=== PATIENT | male | born 1950 | race Caucasian/White ===

== ENCOUNTER 2025-03-20 08:20 | Outpatient (AMB) | payer MEDICARE, SELFPAY ==
--- NOTE | 2025-03-20 08:21 | A.OFFVIS_ITS ---
Vital Signs 03/20/25 08:24 Height 5 ft 9 in Weight 184 lb 2 oz BMI 27.2 BP 158/82 H Blood Pressure Location Rt brachial Position Sitting Pulse 64 Pulse Source Pulse Oximeter Pulse Oximetry (%) 96 Oxygen Delivery Method Room Air Intake Visit Reasons: ENP - Tremors of Nervous System Intake Note: Tremor of central nervous system Manager Subway Required: No Accompanied by: Spouse Allergies No Known Allergies Allergy (Verified 03/20/25 08:22) Medication List - Last Reconciled 03/20/25 by Kathy Munoz MD aspirin 81 mg PO DAILY atorvastatin 80 mg PO BEDTIME lisinopril 40 mg PO DAILY metformin ER 1,000 mg PO BEDTIME metoprolol succinate ER 25 mg PO BEDTIME multivitamin 1 tab PO DAILY HPI Comments Details: 74y/o Right handed male comes for evaluation of tremors in his hands.He started noticing daina hand tremors about 2 year ago. It is more when he is lifting or holding something. 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 He also has some recall issues. No voice tremors. He has some gait issues , slower and takes longer to climb stairs. He denies any change in voice or drooling No family h/o tremors he has fallen out of bed twice in the past year.He has some sleep talking.He denies vivid dreams. He snores. He take snaps and is very fatigued during daytime. 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 HTN (hypertension) Diabetes mellitus type 2 with neurological manifestations Onychomycosis Álvarez's palsy Nephrolithiasis Carotid stenosis DM (diabetes mellitus), type 2 with peripheral vascular complications Overweight (BMI 25.0-29.9) CAD (coronary artery disease) Tubular adenoma Surgical History History of esophagogastroduodenoscopy (EGD) Family History Mother Diabetes Leukemia Father Prostate CA Maternal Grandfather Diabetes Social History Alcohol intake: former Patient Tobacco Use Status: Never used Tobacco Physical Exam Vital Signs: Last Vital Signs Pulse 64 03/20/25 08:24 BP 158/82 H 03/20/25 08:24 Pulse Ox 96 03/20/25 08:24 Oxygen Delivery Method Room Air 03/20/25 08:24 BMI result Body Mass Index 27.2 Const General: cooperative, healthy appearing and comfortable Nutritional Appearance: average body habitus Orientation/consciousness: patient oriented x3 Neuro Other: Mild decreased FFM and foot taps No cog wheel rigidity Mild decreased blink and facial expression Normal voice and expression mild postural tremors gait- antalgic slow General: patient oriented x3, tone normal, moves all extremities and no focal motor deficits Cranial nerves: Yes Bilaterally intact EOM present, Yes Nystagmus not present, Yes Normal facial strength present, Yes Midline tongue present and Yes Ability to bilaterally elevate shoulders present Cognition (Neuro): normal cognition Gait exam (Neuro): Antalgic gait present Motor exam (neuro): 5/5 motor strength present throughout and Normal motor muscle tone present throughout Deep tendon reflexes (DTR's): Right triceps reflex intensity grade: 1+, Left triceps reflex intensity grade: 1+, Rt Biceps (C5, C6): 1+, Left biceps reflex intensity grade: 1+, Right brachioradialis reflex intensity grade: 1+, Left brachioradialis reflex intensity grade: 1+, Right patellar reflex intensity grade: 1+ and Left patellar reflex intensity grade: 1+ Coordination: [id number] test normal Assessment & Plan Assessment & Plan (1) Coarse tremors: Comment: ? senile tremors ? exaggerated physiological. Mild bradykinesia on exam Code(s): G25.2 - Other specified forms of tremor Category: Medical (2) Gait difficulty: Code(s): R26.9 - Unspecified abnormalities of gait and mobility Category: Medical (3) Hypersomnia: Code(s): G47.10 - Hypersomnia, unspecified Category: Medical (4) Snoring: Code(s): R06.83 - Snoring Category: Medical Plan I will evaluate him with MRI brain PT for gait and OT for hand movements will monitor for extrapyramidal symptoms Home sleep test to r/o sleep apnea. Orders: Orders head/brain wo con 03/20/25 G25.2 - Other specified forms of tremor, G47.10 - Hypersomnia, unspecified, R06.83 - Snoring RT home sleep study 03/20/25 G47.10 - Hypersomnia, unspecified, R06.83 - Snoring OT Evaluation and Treatment 03/20/25 G25.2 - Other specified forms of tremor PT Evaluation and Treatment 03/20/25 R26.9 - Unspecified abnormalities of gait and mobility Coding Level of Care Code New Pt Level 4 (38826) Complex EM visit Add On G2211 Diagnoses Coarse tremors G25.2 Gait difficulty R26.9 Hypersomnia G47.10 Snoring R06.83
[2025-03-20 08:24] VITALS: BP 158/82; PULSE 64; O2SAT 96; BMI 27.2
--- OUTSIDE RECORDS SUMMARY | 2025-03-20 08:31 | XMS_ITS ---
Author Name [facility] Organization Unknown Care Team Organization Name Specialty Phone Email Start Date End Da te [facility] 01/16/2025 [facility] 06/07/2022 01/16/20 24
--- OUTSIDE RECORDS SUMMARY | 2025-03-20 08:32 | XMS_ITS | Clinical Summary ---
Author Organization [facility] Address [address] [place] [phone] Phone Care Team Providers Care Pilot Captain Name Role Phone Kacie Holly MD Primary Care Provider [phone] Allergies No known active allergies Medications glucose blood test strip To check sugars once a day 3 Active FA/mv,Ca,iron, min/lycopene/l ut (MULTIVITAL ORAL) 1 daily Active ONETOUCH ULTRASOFT LANCETS MISC use to test once daily Dx: E11.51 2 Active aspirin 81 mg EC tablet 1 TABLET DAILY 9 Active metoprolol succinate (TOPROL-XL) 25 mg 24 hr tablet TAKE 1 TABLET BY MOUTH EVERYDAY AT BEDTIME 90 tablet 3 5 Active atorvastatin (LIPITOR) 80 mg tablet Take 1 tablet (80 mg total) by mouth at bedtime. 90 tablet 1 5 Active lisinopril (PRINIVIL,ZEST RIL) 40 mg tablet TAKE 1 TABLET BY MOUTH EVERYDAY AT BEDTIME 90 tablet 5 Active metFORMIN XR (GLUCOPHAGE-XR ) 500 mg 24 hr tablet Take 3 tablets (1,500 mg total) by mouth at bedtime. 270 tablet 5 Active metFORMIN XR (GLUCOPHAGE-XR ) 500 mg 24 hr tablet Take 3 tablets (1,500 mg total) by mouth at bedtime. 270 tablet 5 025 Discontinued Active Problems Problem Noted Date Diagnosed Date Tubular adenoma 11/19/2024 Overview (11/19/2024): 11/21 CN 13 polyps CAD (coronary artery disease) 08/23/2023 Overview (07/02/2024): CABG x3 Assessment & Plan (06/04/2024 11:12 AM EST): Patient has a history of coronary artery disease status post CABG times [address] Tavera. Postoperatively, he has been feeling well from a cardiac standpoint and completed cardiac rehab. He denies any exertional or anginal symptoms. He continues on medical therapy with aspirin, statin and beta-misael. Patient advised to seek emergency medical attention by calling 911 if they were to develop severe dyspnea, chest pain that did not resolve with rest or nitroglycerin, or if they were to faint. Overweight (BMI 25.0-29.9) 09/10/2022 DM (diabetes mellitus), type 2 with peripheral vascular complications ([facility] V24, [facility] V28) 03/06/2021 Carotid stenosis 03/04/2021 Overview (03/02/2024): Dec 2020: right 50-69%; left <50% Assessment & Plan (06/04/2024 11:12 AM EST): Patient has a history of bilateral carotid artery stenosis found prior to his CABG. He follows with vascular surgery and has an upcoming carotid artery ultrasound and appointment with vascular surgery. He will continue on statin and aspirin therapy. He will continue to follow with the vascular surgeons for further management. 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 Onychomycosis 01/07/2015 Diabetes mellitus type 2 wit h neurological manifestations ([facility] V24, [facility] V28) 01/07/2015 Hypertension 01/17/2014 Overview (07/02/2024): Assessment & Plan (06/04/2024 11:12 AM EST): Patient's blood pressure is well-controlled today. He does mention that his primary care provider has been following his blood pressures. I suggest he keep a log of his blood pressures and bring to his next appointment. In the meantime, he will continue his current antihypertensive medication regimen and notify me of any consistently elevated blood pressure readings. NS (nuclear sclerosis) 05/22/2012 Overview (03/02/2024): Bilateral. Type 2 diabetes mellitus wit h eye manifestations ([facility] V24, [facility] V28) 05/22/2012 Overview (03/02/2024): Bilateral nuclear sclerosis. Iron deficiency anemia 10/17/2008 HLD (hyperlipidemia) 08/23/2008 Overview (07/02/2024): Assessment & Plan (06/04/2024 11:12 AM EST): Patient has a history of hyperlipidemia as well as history of coronary artery disease. His last LDL cholesterol was at goal. He will continue on statin therapy. Upcoming fasting lipid panel to be completed prior to his PCP appointment in June. His goal LDL should ideally be less than 70 given his history of coronary artery disease and carotid artery stenosis. I have reviewed with the patient the importance of a heart healthy lifestyle which includes eating a low-fat low-salt diet, getting regular exercise, maintaining a healthy weight, not smoking, and following up with routine medical care. Immunizations Immunization Administration Dates Next Due H1N1 Inj Preservative Free 08/01/2009 Influenza Quadravalent, MDCK , 0.5ml, preservative free (Flucelvax) 6mo and older 07/09/2019 Influenza Quadravalent, MDCK , 0.5ml, with preservative (Flucelvax) 6mo and older 03/22/2017 Influenza trivalent, 0.5mL ( Fluad) 65yo and older 02/06/2024 Influenza trivalent, 0.5mL ( Fluzone High-dose) 65yo and older 02/15/2023,02/11/2022,03/06/2021,02/22,03/29/2016,02/18/2015,06/20/2014 ,04/10/2013,03/31/2012,05/05/2011,12/0 06/2009 Influenza trivalent, with pr eservative (Fluzone; Afluria) 6mo and older 01/30/2020 Pfizer (ages 12 & older) Biv alent, COVID-19 02/06/2024 Pfizer SARS-CoV-2 COVID-19, mRNA, LNP-S, preservative free 09/07/2021,03/10/2021 Pneumococcal conjugate 13 va lent (Prevnar 13, PCV13) 2mo and older 02/22/2018 Pneumococcal polysaccharide 23 valent (Pneumovax 23) 2yo and older 02/27/2019,04/16/2008 Respiratory syncytial virus (RSV), unspecified 02/06/2024 Td Tetanus diptheria (Tdvax) 7yo and older 08/27/2022,12/05/2002,12/05/2002 Tdap Tetanus diptheria acell ular pertussis (Boostrix; Adacel) 7yo and older 08/01/2012 Zoster Live 08/08/2013 Zoster recombinant (Shingrix ) 19yo and older 04/14/2020 Surgical History Surgery Date Site/Laterality Comments COLONOSCOPY 09/05/08 hemorrhoids. Repeat in ten years ESOPHAGOGASTRODUODENOSCOPY 11/12/08 mild gastritis; JOSHUA neg CHOLECYSTECTOMY 10/06 COLONOSCOPY 02/22/2019 polyps COLONOSCOPY 11/07/2024 Medical History Medical History Date Comments Hypertension 01/17/2014 Diabetes mellitus type 2 wit h neurological manifestations ([facility] V24, [facility] V28) 01/07/2015 Onychomycosis 01/07/2015 DM (diabetes mellitus), type 2 with peripheral vascular complications ([facility] V24, [facility] V28) 03/06/2021 CAD (coronary artery disease) 08/23/2023 CA BG x3 Carotid stenosis 03/04/2021: right 50-69%; left <50% HLD (hyperlipidemia) 08/23/2008 Nephrolithiasis 11/07/2019 Tubular adenoma 11/19/202411/21 CN 13 polyp s Family History Medical History Relation Name Comments Prostate cancer Father [place], age 92 Diabetes Maternal Grandfather Hypertension Mother DM, leukemia Relation Name Status Comments Father Maternal Grandfather Mother Social History Tobacco Use Types Packs/Day Years Used Date Smoking Tobacco: Never Smokeless Tobacco: Never Tobacco Cessation:Counseling Given: Not Answered Alcohol Use Standard Drinks/Week Comments Not Currently 0 (1 standard drink = 0.6 oz pur e alcohol) Interpersonal Safety Answer Date Record ed Physical Abuse Unrecognized value 11/07/2024 Verbal Abuse Unrecognized value 11/07/2024 Sex and Gender Information Value Date Recorded Sex Assigned at Male 06/21/2024 9:14 AM EST Legal Sex Male 5:39 AM EST Gender Identity Male 06/21/2024 9:14 AM EST Sexual Orientation Straight 06/21/2024 9: 14 AM EST Obstetrics History Last Filed Vital Signs Vital Sign Reading Time Taken Comments Blood Pressure 138/68 11/19/2024 9:41 AM EDT Pulse 70 11/19/2024 9:26 AM EDT Temperature 36.1 C (96.9 F) 11/19/2024 9:26 AM EDT Respiratory Rate 16 11/19/2024 9:26 AM EDT Oxygen Saturation 97% 11/19/2024 9:26 AM EDT Inhaled Oxygen Concentration - - Weight 83.9 kg (185 lb) 11/19/2024 9:26 AM EDT Height 175.3 cm (5' 9 ) 11/19/2024 9:26 AM EDT Body Mass Index 27.32 11/19/2024 9:26 AM EDT Plan of Treatment Upcoming Encounters Date Type Department Care Team (Late st Contact Info) Description 03/25/2025 8:30 AM EDT Office Visit Adult Medicine [facility] [address] [place] [address] Hui Victoria PA [address] [place], [place] 08/14/2025 9:30 AM EDT Office Visit Vascular Surgery - [place] [address] [place] [address] Tati Zaragoza MD [address] [place] [address] Health Maintenance Due Date Last Done Comments Diabetes: Annual Foot Exam 1962 Zoster Vaccines (3 of 3) 06/09/2020 04/14/2020, 07/28 Social Influencers of Health Screening 05/08/2022 Depression Screening 05/30/2024 COVID-19 Vaccine ( season) 2025 02/06/2024, 09/07/2021, 03/10/2021, Additional history exists Influenza Vaccine (#1) 2025 , 02/15/2023, 02/11/2022, Additional history exists Medicare Annual Wellness Visit 03/05/2025 03/05/2024 Diabetes: Annual Retina Eye Exam 04/09/2025 04/09/2024, 10/05/2023 Diabetes: Blood Sugar Control Test (HGBA1C) 04/27/2025 10/25/2024, 06/28/2024, 03/05/2024, Additional history exists Diabetes: Annual Urine Albumin-Creatinine Ratio (uACR) 06/28/2025 06/28/2024, 08/10/2023 Diabetes: Annual GFR (Glomerular Filtration Rate) 06/28/2025 06/28/2024, 10/17/2023, 10/17/2023 Hypertension/CHF/CAD Annual BMP Blood Test 06/28/2025 06/28/2024, 10/17/2023, 10/17/2023 Colorectal Cancer Screening: Colonoscopy 11/07/2025 11/07/2024 Falls Risk Assessment 11/07/2025 11/07/2024 RSV Immunization Adult Patients (1 - 1-dose 75+ series) 12/02/2027 02/06/2024 Cholesterol Screening (Lipid Panel) 06/28/2029 06/28/2024, 08/10/2023 DTaP,Tdap,and Td Vaccines (5 - Td or Tdap) 08/27/2032 08/27/2022, 08/01/2012, 12/05/2002, Additional history exists Hepatitis C Screening Completed 04/10/2013 Pneumococcal Vaccine: 50+ Years Completed 02/27/2019, 02/22/2018, 04/16/2008 RSV Immunization Patients Under 20 months Aged Out 02/06/2024 No longer eligible based on patient's age to complete this topic HIB Vaccines Aged Out No longer eligi ble based on patient's age to complete this topic HPV Vaccines Aged Out No longer eligi ble based on patient's age to complete this topic Hepatitis A Vaccines Aged Out No long er eligible based on patient's age to complete this topic Hepatitis B Vaccines Aged Out No long er eligible based on patient's age to complete this topic IPV Vaccines Aged Out No longer eligi ble based on patient's age to complete this topic MMR Vaccines Aged Out No longer eligi ble based on patient's age to complete this topic Meningococcal ACWY Vaccine Aged Out N o longer eligible based on patient's age to complete this topic Meningococcal B Vaccine Aged Out No l onger eligible based on patient's age to complete this topic Varicella Vaccines Aged Out No longer eligible based on patient's age to complete this topic Procedures Procedure Name Priority Date/Time Associated Diagnosis Comments COLONOSCOPY Routine 11/07/2024 3:15 PM EDT Hx of colonic polyps HEMOGLOBIN A1C Routine 10/25/2024 9:06 AM EDT DM (diabetes mellitus), type 2 with peripheral vascular complications (CMS/HCC V24, CMS/HCC V28) MICROALBUMIN CREATININE URINE RATIO Routine 06/28/2024 10:04 AM EST Diabetes mellitus type 2 with neurological manifestations (CMS/HCC V24, CMS/HCC V28) DM (diabetes mellitus), type 2 with peripheral vascular complications (CMS/HCC V24, CMS/HCC V28) COMPREHENSIVE METABOLIC PANEL Routine 06/28/2024 10:04 AM EST Hypertension, unspecified type Diabetes mellitus type 2 with neurological manifestations (CMS/HCC V24, CMS/HCC V28) DM (diabetes mellitus), type 2 with peripheral vascular complications (CMS/HCC V24, CMS/HCC V28) Mixed hyperlipidemia LIPID PANEL WITH REFLEX TO DIRECT LDL Routine 06/28/2024 10:04 AM EST Hypertension, unspecified type Diabetes mellitus type 2 with neurological manifestations (CMS/HCC V24, CMS/HCC V28) DM (diabetes mellitus), type 2 with peripheral vascular complications (CMS/HCC V24, CMS/HCC V28) Mixed hyperlipidemia EXTERNAL DIABETIC RETINA EYE EXAM 04/09/2024 HEPATITIS C SCREENING Routine 04/10/2013 from Last 3 Months or Most Recently Relevant to Health Maintenance Results * COLONOSCOPY Anesthesia - MAC; [facility] ENDOSCOPY (11/07/2024 3:15 PM EDT) Anatomical Region Laterality Modality Endoscopy 11/07/2024 2:44 PM EDT Impressions 11/07/2024 3:16 PM EDT - 12 2 to 10 mm polyps in the transverse colon, in the ascending colon and in the cecum, removed with a cold snare. Resected and retrieved. - One 20 mm polyp in the transverse colon, removed piecemeal using a cold snare. Resected and retrieved. - Internal hemorrhoids. Recommendation: - Await pathology results. - Repeat colonoscopy in 1 year for surveillance. Narrative 11/07/2024 3:16 PM EDT [facility] GI Patient Name: Alli Lea Procedure Date: 11/07/2024 2:44 PM Date of : 1950 Age: 73 Gender: Male Note Status: Finalized Attending MD: Ino Tee MD, Procedure Date No Time: 11/07/2024 Procedure: Colonoscopy Indications: High risk colon cancer surveillance: Personal history of colonic polyps Providers: Ino Tee MD Referring MD: Ino Tee MD Medicines: Monitored Anesthesia Care Complications: No immediate complications. Estimated blood loss: Minimal. Estimated Blood Loss: Estimated blood loss was minimal. Procedure: Pre-Anesthesia Assessment: - Prior to the procedure, a History and Physical was performed, and patient medications and allergies were reviewed. The patient is competent. The risks and benefits of the procedure and the sedation options and risks were discussed with the patient. All questions were answered and informed consent was obtained. Patient identification and proposed procedure were verified by the physician, the nurse, the electric fork operator and the restoration technician in the pre-procedure area in the endoscopy suite. Mental Status Examination: alert and oriented. Airway Examination: normal oropharyngeal airway and neck mobility. Respiratory Examination: clear to auscultation. CV Examination: normal. Prophylactic Antibiotics: The patient does not require prophylactic antibiotics. Prior Anticoagulants: The patient has taken no anticoagulant or antiplatelet agents. ASA Grade Assessment: III - A patient with severe systemic disease. After reviewing the risks and benefits, the patient was deemed in satisfactory condition to undergo the procedure. The anesthesia plan was to use monitored anesthesia care (MAC). Immediately prior to administration of medications, the patient was re-assessed for adequacy to receive sedatives. The heart rate, respiratory rate, oxygen saturations, blood pressure, adequacy of pulmonary ventilation, and response to care were monitored throughout the procedure. The physical status of the patient was re-assessed after the procedure. After I obtained informed consent, the scope was passed under direct vision. Throughout the procedure, the patient's blood pressure, pulse, and oxygen saturations were monitored continuously. The Olympus Colonoscope was introduced through the anus and advanced to the cecum, identified by appendiceal orifice and ileocecal valve. The colonoscopy was performed without difficulty. The patient tolerated the procedure well. The quality of the bowel preparation was good. Findings: The perianal and digital rectal examinations were normal. 12 sessile polyps were found in the transverse colon, ascending colon and cecum. The polyps were 2 to 10 mm in size. These polyps were removed with a cold snare. Resection and retrieval were complete. Estimated blood loss was minimal. A 20 mm polyp was found in the transverse colon. The polyp was flat and multi-lobulated. The polyp was removed with a piecemeal technique using a cold snare. Resection and retrieval were complete. Estimated blood loss was minimal. Internal hemorrhoids were found during retroflexion. The hemorrhoids were Grade II (internal hemorrhoids that prolapse but reduce spontaneously). Procedure Code(s): --- Professional --- 13734, Colonoscopy, flexible; with removal of tumor(s), polyp(s), or other lesion(s) by snare technique Diagnosis Code(s): --- Professional --- D12.3, Benign neoplasm of transverse colon (hepatic flexure or splenic flexure) D12.2, Benign neoplasm of ascending colon D12.0, Benign neoplasm of cecum CPT copyright 2020 [employer]. All rights reserved. The codes documented in this report are preliminary and upon nurse informaticist review may be revised to meet current compliance requirements. Ino Tee MD 11/07/2024 3:16:47 PM This report has been signed electronically.Ino Tee MD Number of Addenda: 0 Note Initiated On: 11/07/2024 2:44 PM Scope Withdrawal Time: 0 hours 19 minutes 12 seconds Scope In: 2:50:31 PM Scope Out: 3:14:19 PM Endoscopy Department at [facility] - [address] [place] [phone] Procedure Note Ino Tee MD - 11/07/2024 [facility] GI Patient Name: Alli Lae Procedure Date: 11/07/2024 2:44 PM Date of : 1950 Age: 73 Gender: Male Note Status: Finalized Attending MD: Ino Tee MD, Procedure Date No Time: 11/07/2024 Procedure: Colonoscopy Indications: High risk colon cancer surveillance: Personalhistory of colonic polyps Providers: Ino Tee MD Referring MD: Ino Tee MD Medicines: Monitored Anesthesia Care Complications: No immediate complications. Estimated blood loss: Minimal. Estimated Blood Loss: Estimated blood loss was minimal. Procedure: Pre-Anesthesia Assessment: - Prior to the procedure, a History and Physicalwas performed, and patient medications and allergieswere reviewed. The patient is competent. The risks and benefits of the procedure and the sedation optionsand risks were discussed with the patient. Allquestions were answered and informed consent was obtained. Patient identification and proposed procedure were verified by the physician, the nurse, theanesthetist and the restoration technician in the pre-procedure area in the endoscopy suite. Mental Status Examination: alertand oriented. Airway Examination: normal oropharyngeal airway and neck mobility. Respiratory Examination: clear to auscultation. CV Examination: normal. Prophylactic Antibiotics: The patient does notrequire prophylactic antibiotics. Prior Anticoagulants: The patient has taken no anticoagulant or antiplatelet agents. ASA Grade Assessment: III - A patient with severe systemic disease. After reviewing the risksand benefits, the patient was deemed in satisfactory condition to undergo the procedure. The anesthesia plan was to use monitored anesthesia care (MAC). Immediately prior to administration of medications, the patient was re-assessed for adequacy to receive sedatives. The heart rate, respiratory rate, oxygen saturations, blood pressure, adequacy of pulmonary ventilation, and response to care were monitored throughout the procedure. The physical status ofthe patient was re-assessed after the procedure. After I obtained informed consent, the scope was passed under direct vision. Throughout theprocedure, the patient's blood pressure, pulse, and oxygen saturations were monitored continuously. TheOlympus Colonoscope was introduced through the anus and advanced to the cecum, identified by appendiceal orifice and ileocecal valve. The colonoscopy was performed without difficulty. The patient tolerated the procedure well. The quality of the bowel preparation was good. Findings: The perianal and digital rectal examinations were normal. 12 sessile polyps were found in the transversecolon, ascending colon and cecum. The polyps were 2 to 10mm in size. These polyps were removed with a coldsnare. Resection and retrieval were complete. Estimatedblood loss was minimal. A 20 mm polyp was found in the transverse colon.The polyp was flat and multi-lobulated. The polyp was removed with a piecemeal technique using a coldsnare. Resection and retrieval were complete. Estimatedblood loss was minimal. Internal hemorrhoids were found duringretroflexion. The hemorrhoids were Grade II (internal hemorrhoids that prolapse but reduce spontaneously). Procedure Code(s): --- Professional --- 08609, Colonoscopy, flexible; with removal of tumor(s), polyp(s), or other lesion(s) by snare technique Diagnosis Code(s): --- Professional --- D12.3, Benign neoplasm of transverse colon (hepatic flexure or splenic flexure) D12.2, Benign neoplasm of ascending colon D12.0, Benign neoplasm of cecum CPT copyright 2020 [employer]. All rights reserved. The codes documented in this report are preliminary and upon nurse informaticist reviewmay be revised to meet current compliance requirements. Ino Tee MD 11/07/2024 3:16:47 PM This report has been signed electronically.Ino Tee MD Number of Addenda: 0 Note Initiated On: 11/07/2024 2:44 PM Scope Withdrawal Time: 0 hours 19 minutes 12 seconds Scope In: 2:50:31 PM Scope Out: 3:14:19 PM Endoscopy Department at [facility] - [address] [place] [phone] IMPRESSION: - 12 2 to 10 mm polyps in the transverse colon, in the ascending colon and in the cecum, removed with acold snare. Resected and retrieved. - One 20 mm polyp in the transverse colon, removed piecemeal using a cold snare. Resected andretrieved. - Internal hemorrhoids. Recommendation: - Await pathology results. - Repeat colonoscopy in 1 year for surveillance. us Ino Tee MD GI~PROCEDURE ORDERABLES Fin al Result * (ABNORMAL) Hemoglobin A1c (10/25/2024 9:06 AM EDT) Hemoglobin A1C 7.7(H) <6.5 % LAB CHEMISTRY METHOD 10/25/2024 12:45 PM EDT [facility] Mean Bld Glu Estim. 174 mg/dL LAB CHEMISTRY METHOD 10/25/2024 12:45 PM EDT [facility] Blood Venous blood specimen / Unknown Venipuncture / Unknown 10/25/2024 9:06 AM EDT 10/25/2024 9:06 AM EDT us Kacie Holly MD LAB BLOOD ORDERABLES Final Resul t [facility] [address] [place] [address], * Lipid panel with reflex to direct LDL (06/28/2024 10:04 AM EST) Cholesterol 133 0 - 200 mg/dL LAB CHEMISTRY METHOD 06/28/2024 12:29 PM EST [facility] Triglycerides 98 0 - 150 mg/dL LAB CHEMISTRY METHOD 06/28/2024 12:29 PM EST [facility] HDL 58 >=40 mg/dL LAB CHEMISTRY METHOD 06/28/2024 12:29 PM [facility] LDL Calculated 55 0 - 100 mg/dL LAB CHEMISTRY METHOD 06/28/2024 12:29 PM [facility] VLDL Cholesterol Keenan 19.6 mg/dL LAB CHEMISTRY METHOD 06/28/2024 12:29 PM EST [facility] Non HDL Chol. (LDL+VLDL) 75 <145 mg/dL LAB CHEMISTRY METHOD 06/28/2024 12:29 PM EST [facility] Chol/HDL Ratio 2.3 0.0 - 4.4 LAB CHEMISTRY METHOD 06/28/2024 12:29 PM EST [facility] Blood Venous blood specimen / Unknown Venipuncture / Unknown 06/28/2024 10:04 AM EST 06/28/2024 10:04 AM EST us Hui COLEMAN LAB BLOOD ORDERABLES Final Re sult Performing Organization Address [facility]/ZIP Co de Phone Number [facility] [address] [place] [address], [place] [phone] * Microalbumin creatinine urine ratio (06/28/2024 10:04 AM EST) Creatinine, Urine 193.0 mg/dL LAB CHEMISTRY METHOD 06/28/2024 1:25 PM [facility] Microalb, Ur 28.6 0.0 - 29.0 mg/L LAB CHEMISTRY METHOD 06/28/2024 1:25 PM [facility] Microalb/Creat Ratio 15 <30 mg/g creat LAB CHEMISTRY METHOD 06/28/2024 1:25 PM EST [facility] Urine Urine specimen from urethra / Unknown Non-blood Collection / Unknown 06/28/2024 10:04 AM EST 06/28/2024 10:04 AM EST us Hui [facility] LAB URINE ORDERABLES Final Re sult Performing Organization Address City/[facility]/ZIP Co de Phone Number [facility] [address] [place] [address], [place] [phone] * (ABNORMAL) Comprehensive metabolic panel (06/28/2024 10:04 AM EST) Sodium 142 133 - 145 mmol/L LAB CHEMISTRY METHOD 06/28/2024 12:28 PM [facility] Potassium 4.2 3.5 - 5.5 mmol/L LAB CHEMISTRY METHOD 06/28/2024 12:28 PM [facility] Chloride 108 96 - 110 mmol/L LAB CHEMISTRY METHOD 06/28/2024 12:28 PM [facility] CO2 28 21 - 32 mmol/L LAB CHEMISTRY METHOD 06/28/2024 12:28 PM [facility] [facility] Anion Gap 6 3 - 11 LAB CHEMISTRY METHOD 06/28/2024 12:28 PM [facility] Glucose 149(H) 70 - 100 mg/dL LAB CHEMISTRY METHOD 06/28/2024 12:28 PM [facility] BUN 15 5 - 25 mg/dL LAB CHEMISTRY METHOD 06/28/2024 12:28 PM [facility] Creatinine 1.22 0.70 - 1.30 mg/dL LAB CHEMISTRY METHOD 06/28/2024 12:28 PM [facility] eGFR 63 >=60 mL/min/1. 73m2 LAB CHEMISTRY METHOD 06/28/2024 12:28 PM [facility] Comment:Calculation based on the Chronic Kidney Disease Epidemiology Collaboration (CKD-EPI) equation refit without adjustment for race. BUN/Creatinine Ratio 12.3 LAB CHEMISTRY METHOD 06/28/2024 12:28 PM [facility] Calcium 9.2 8.5 - 10.5 mg/dL LAB CHEMISTRY METHOD 06/28/2024 12:28 PM [facility] AST (SGOT) 25 10 - 42 unit/L LAB CHEMISTRY METHOD 06/28/2024 12:28 PM [facility] ALT (SGPT) 32 10 - 60 unit/L LAB CHEMISTRY METHOD 06/28/2024 12:28 PM [facility] Alkaline Phosphatase 104 42 - 121 unit/L LAB CHEMISTRY METHOD 06/28/2024 12:28 PM EST [facility] Total Protein 6.9 6.0 - 8.0 g/dL LAB CHEMISTRY METHOD 06/28/2024 12:28 PM EST [facility] Albumin 4.0 3.2 - 5.0 g/dL LAB CHEMISTRY METHOD 06/28/2024 12:28 PM [facility] Total Bilirubin 0.6 0.0 - 1.4 mg/dL LAB CHEMISTRY METHOD 06/28/2024 12:28 PM EST [facility] Blood Venous blood specimen / Unknown Venipuncture / Unknown 06/28/2024 10:04 AM EST 06/28/2024 10:04 AM EST us [facility] BLOOD ORDERABLES Final Re sult [facility] [address] [place] [address], [place] [phone] * External Diabetic Retina Eye Exam Report (04/09/2024) Anatomical Region Laterality Modality Ultrasound us Provider Onbase IMG US PROCEDURES Final Resul t * Hepatitis C Screening (04/10/2013) Pathologist [facility] Hepatitis C Screening Abstracted us Historical Provider HEALTH MAINTENANCE Final Result from Last 3 Months or Most Recently Relevant to Health [place] [id number] [facility] Care Teams Pilot Captain Relationship Specialty Start Date End Date Kacie Holly MD [address] [place] [address] PCP - General Internal Medicine 02/29/20
== END 2025-03-20 09:04 | disposition home or self-care (01) ==
LOC: HO.HSMS 08:21
PROVIDERS: PCP Internal Medicine; Visit Provider Psychiatry & Neurology Neurology
DX: G25.2 Other specified forms of tremor (principal); R26.9 Unspecified abnormalities of gait and mobility; G47.10 Hypersomnia, unspecified; R06.83 Snoring
CPT/HCPCS: 99204; G2211

== ENCOUNTER → 2025-03-20 08:20 | Outpatient (BNVA) | payer MEDICARE, SELFPAY | PROVIDERS: PCP Internal Medicine; Visit Provider Psychiatry & Neurology Neurology | DX: R25.2 Cramp and spasm (principal); R26.9 Unspecified abnormalities of gait and mobility; G47.10 Hypersomnia, unspecified; R06.83 Snoring | CPT/HCPCS: 99202 ==

== ENCOUNTER → 2025-04-10 16:24 | Outpatient (BNV) | payer MEDICARE, SELFPAY | PROVIDERS: PCP Internal Medicine; Visit Provider Radiology Body Imaging | DX: R06.83 Snoring (principal) | CPT/HCPCS: 70551 ==

== ENCOUNTER 2025-04-10 16:32 | Outpatient (REF) | payer MEDICARE, SELFPAY ==
--- NOTE | ~2025-04-10 | MR_ITS ---
EXAMINATION: MR BRAIN WITHOUT CONTRAST CLINICAL INFORMATION: R06.83 - Snoring COMPARISON: None available. TECHNIQUE: MRI of the brain was obtained using routine sequences without contrast. FINDINGS: Brain parenchyma: No shift of midline structures. No evidence of acute infarct, mass lesion or parenchymal hemorrhage. Scattered foci of T2/FLAIR hyperintensity in the white matter of bilateral cerebral hemispheres are nonspecific, likely a manifestation of chronic small vessel disease. Ventricles/extra-axial CSF spaces. Prominence of the brain sulci and ventricles, more pronounced in the frontal and temporal lobes. No hydrocephalus. No extra-axial fluid collection. Extracranial structures: Arterial flow voids in the skull base are preserved. Evidence of lens replacement in the bilateral orbital globes. Minimal mucosal thickening of the paranasal sinuses. Trace fluid in the left mastoid air cell. Right mastoid air cells are clear. MR/MR head/brain wo con IMPRESSION: No acute intracranial findings. Electronically signed by: Griselda Arguelles MD 04/10/2025 06:15 PM [facility] [place]
--- OUTSIDE RECORDS SUMMARY | 2025-04-10 19:06 | XMS_ITS | Encounter Summary ---
Author Organization [facility] Address [address] [place] [address] Care Team Providers Care Antichecking Iron Worker Name Role Phone Kacie Holly MD Primary Care Provider [phone] Encounter Details Date Type Department Care Team (Late st Contact Info) Description 04/05/2025 Results Follow-Up Adult Medicine [facility] [address] [place], [place] [phone] Hui Victoria PA [address] [place], [place] Social History Tobacco Use Types Packs/Day Years Used Date Smoking Tobacco: Never Smokeless Tobacco: Never Alcohol Use Standard Drinks/Week Comments Not Currently 0 (1 standard drink = 0.6 oz pur e alcohol) Housing Instability Answer Date Recorde d Are you worried that in the next 2 months you may not have stable housing? No 03/25/2025 Food Access & Nutrition Answer Date Rec orded Do you have access to a vari ety of food including fruits and vegetables? Yes 03/25/2025 Access to Healthcare Answer Date Record ed Within the last 3 months, ho w many times did you visit the emergency department for your medical care? 0 03/25/2025 Health Literacy Answer Date Recorded How often do you need to hav e someone help you when you read instructions, pamphlets, or other written material from your doctor or pharmacy? Never 03/25/2025 Caregiver: How often do you need to have someone help you when you read instructions, pamphlets, or other written material from your doctor or pharmacy? Not on file 03/25/2025 Financial Risk Answer Date Recorded How hard is it for you to pa y for the very basics like food, housing, medical care, and air conditioning / heating? Not very hard 03/25/2025 Transportation Answer Date Recorded Has the lack of transportati on kept you from meetings, work, or from getting things needed for daily living? No Has the lack of transportati on kept you from medical appointments or from getting medications? No 03/25/2025 Social Isolation Answer Date Recorded How often do you feel lonely or isolated from th ose around you? Never 03/25/2025 Food Risk Answer Date Recorded Within the past 12 months we worried whether our food would run out before we got money to buy more. Never true 03/25/2025 Within the past 12 months th e food we bought just didn't last and we didn't have money to get more. Never true 03/25/2025 Dependent Care Answer Date Recorded Do you need help finding or paying for care for your loved ones. For example, child welfare social worker or elderly care for an older adult? No 03/25/2025 Education Answer Date Recorded Do you think completing more education or training, like finishing a GED, going to college, or learning a trade, would be helpful for you? N/A 03/25/2025 Employment and Income Answer Date Recor ded During the last four weeks, have you been actively looking for work? No 03/25/2025 Living Situation Answer Date Recorded What is your living situation? Unrecognized valu e 03/25/2025 Interpersonal Safety Answer Date Record ed Physical Abuse Unrecognized value 11/07/2024 Verbal Abuse Unrecognized value 11/07/2024 Sex and Gender Information Value Date Recorded Sex Assigned at Male 06/21/2024 9:14 AM EST Legal Sex Male 5:39 AM EST Gender Identity Male 06/21/2024 9:14 AM EST Sexual Orientation Straight 06/21/2024 9: 14 AM EST documented as of this encounter Plan of Treatment Upcoming Encounters Date Type Department Care Team (Late st Contact Info) Description 04/22/2025 10:15 AM EST Office Visit Adult Medicine [facility] [address] [place] [address] Hui Victoria PA [address] [place], [place] 08/14/2025 9:30 AM EDT Office Visit Vascular Surgery - [facility] [address] [place] [phone] Tati Zaragoza MD [address] [place] [address] documented as of this encounter Visit Diagnoses Not on filedocumented in this encounter Additional Health Concerns Assessment Noted Time PHQ-9 Depression Total Score: 0 03/25/20 8:47 AM EDT A fall risk assessment has been complete d for the patient 03/25/2025 8:46 AM EDT documented as of this encounter Care Teams Antichecking Iron Worker Relationship Specialty Start Date End Date Kacie Holly MD [address] [place] [address] PCP - General Internal Medicine 02/29/20 documented as of this encounter
--- OUTSIDE RECORDS SUMMARY | 2025-04-10 19:06 | XMS_ITS | Encounter Summary ---
Author Organization [facility] Address [address] [place] [address] Care Team Providers Care Site Worker Name Role Phone Philip Calvert MD Primary Care Provider Unavail able Kacie Holly MD Primary Care Provider Kun Velarde MD Unavailable Jason Avendano MD Unavailable [phone] Irais Martinez NP Unavailable [phone] Encounter Details Date Type Department Care Team Description 05/02/2015 Diamond [facility] Report Medical Records [address] [place] [id number] Gretel Redding Social History Tobacco Use Types Packs/Day Years Used Date Smoking Tobacco: Never Smokeless Tobacco: Never Alcohol Use Standard Drinks/Week Comments No 0 (1 standard drink = 0.6 oz pur e alcohol) none sence 04/06 Sex Assigned at Date Recorded Not on file Job Start Date Occupation Industry Not on file Not on file Not on file documented as of this encounter Plan of Treatment Not on file documented as of this encounter Visit Diagnoses Not on filedocumented in this encounter Care Teams Site Worker Relationship Specialty Start Date End Date Philip Calvert MD PCP - General 06/18/08 02/28/20 Kacie Holly MD [address] [place] [address] PCP - General Internal Medicine 02/29/20 Kun Velarde MD [address] [place], [place] [id number] Specialist Cardiovascular Disease 08/19/2308/20/ 4 Jason Avendano MD [address] [facility] [address] [place] [address] Specialist Cardiovascular Disease 08/22/23 Irais Martinez NP [address] [place] [address] [address] Diaz [address] [place] [address] Cardiology 10/28/23 documented as of this encounter
--- OUTSIDE RECORDS SUMMARY | 2025-04-10 19:06 | XMS_ITS | Encounter Summary ---
Author Organization [facility] Address [address] [place] [address] Care Team Providers Care Shrimp Packer Name Role Phone Kacie Holly MD Primary Care Provider Kun Velarde MD Unavailable [phone] Jason Avendano MD Unavailable Irais Martinez NP Unavailable Reason for Referral * Non ANKUSH (Routine) - Closed Specialty Diagnoses / Procedures Referred By Moe t Referred To Contact Vascular Surgery Procedures REFERRAL TO VASCULAR SURGERY (IN NETWORK) Barbara Elizabeth PA-C [address] [place] [address] Vascular Surg/Spld [address] [facility] [address] [place] [address] Referral ID Status Reason Start Date Expiration Date Visits Re quested Visits Authorized [id number] Closed 03/04/2021 03/04/2022 1 1 Encounter Details Date Type Department Care Team Description 03/04/2021 Orders Only Adult Medicine [address] [address] Barbara Elizabeth PA-C [address] [place] [address] [phone] Primary hypertension (Primary Dx); Bilateral carotid artery stenosis Social History Tobacco Use Types Packs/Day Years [...] on file documented as of this encounter Results * (ABNORMAL) BASIC METABOLIC PANEL (03/05/2021 8:34 AM EDT) GLUCOSE 107(H) 70 - 100 mg/dL 03/05/2021 1:12 PM EDT [facility] Comment:Reference range appl icable to fasting specimens only CREAT 0.98 0.7 - 1.3 mg/dL 03/05/2021 1:12 PM EDT [facility] GLOMERULAR FILTRATION RATE > 60 03/05/2021 1:12 PM EDT [facility] Comment: If patient is -Swiss, multiply result by 1.21 Chronic Kidney Disease: < 60 ml/min/1.73 square meters Kidney Failure: < 15 ml/min/1.73 square meters NA 143 135 - 145 mEq/L 03/05/2021 1:12 PM EDT [facility] K 4.2 3.5 - 5.5 mmol/L 03/05/2021 1:12 PM EDT [facility] CL 108 96 - 110 mmol/L 03/05/2021 1:12 PM EDT [facility] CARBON DIOXIDE (CO2) 28 21 - 32 mmol/L 03/05/2021 1:12 PM EDT [facility] ANION GAP 7 3 - 11 03/05/2021 1:12 PM EDT [facility] CALCIUM 9.0 8.5 - 10.5 mg/dL 03/05/2021 1:12 PM EDT [facility] Blood Urea Nitrogen 15 5 - 25 mg/dL 03/05/2021 1:17 PM EDT [facility] 03/05/2021 8:34 AM EDT 03/05/2021 8:34 AM EDT Narrative [facility] - 03/05/2021 1:17 PM EDT Release to patient->Immediate Barbara Elizabeth PA-C LAB [facility] documented in this encounter Visit Diagnoses Diagnosis Primary hypertension- Primary Unspecified essential hypertension Bilateral carotid artery stenosis Occlusion and stenosis of multiple and bilateral precerebral arteries without mention of cerebral infarction Primary hypertension Unspecified essential hypertension documented in this encounter Care Teams Shrimp Packer Relationship Specialty Start Date End Date Kacie Holly MD [address] [place] [address] PCP - General Internal Medicine 02/29/20 Kun Velarde MD [address] [facility] [address] [place] [address] Specialist Cardiovascular Disease 08/19/23 4 Jason vAendano MD [address] [place] [address] Specialist Cardiovascular Disease 08/22/23 Irais Martinez NP [address] [place] [address] Cardiology 10/28/23 documented as of this encounter
--- OUTSIDE RECORDS SUMMARY | 2025-04-10 19:06 | XMS_ITS | Clinical Summary ---
Author Organization [facility] Address [address] [place] [phone] Phone Care Team Providers Care Web Applications Developer Name Role Phone Kacie Holly MD Primary Care Provider [phone] Allergies No known active allergies Medications glucose blood test strip To check sugars once a day 09/10/2022 Active FA/mv,Ca,iron,m in/lycopene/lut (MULTIVITAL ORAL) 1 daily Active ONETOUCH ULTRASOFT LANCETS MISC use to test once daily Dx: E11.51 02/18/2022 Active aspirin 81 mg EC tablet 1 TABLET DAILY 06/18/2008 Active metoprolol succinate (TOPROL-XL) 25 mg 24 hr tablet TAKE 1 TABLET BY MOUTH EVERYDAY AT BEDTIME 90 tablet 3 07/19/2024 Active atorvastatin (LIPITOR) 80 mg tablet Take 1 tablet (80 mg total) by mouth at bedtime. 90 tablet 1 11/19/2024 Active lisinopril (PRINIVIL,ZESTR IL) 40 mg tablet TAKE 1 TABLET BY MOUTH EVERYDAY AT BEDTIME 90 tablet 02/07/2025 Active metFORMIN XR (GLUCOPHAGE-XR) 500 mg 24 hr tablet Take 3 tablets (1,500 mg total) by mouth at bedtime. 270 tablet 02/21/2025 Active amLODIPine (NORVASC) 5 mg tablet Take 1 tablet (5 mg total) by mouth at bedtime. 90 each 03/25/2025 Active Active Problems Problem Noted Date Diagnosed Date [...] mellitus), type 2 with peripheral vascular complications ([facility] V24, [facility] V28) 03/06/2021 Carotid stenosis 03/04/2021 Overview (03/02/2024): [...] vascular surgeons for further management. 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 Onychomycosis 01/07/2015 Diabetes mellitus type 2 wit h neurological manifestations ([facility] V24, [facility] V28) 01/07/2015 Hypertension 01/17/2014 Overview (07/02/2024): Assessment [...] 2 diabetes mellitus wit h eye manifestations ([facility] V24, [facility] V28) 05/22/2012 Overview (03/02/2024): Bilateral nuclear sclerosis. Iron deficiency anemia 10/17/2008 Hyperlipidemia LDL goal <55 08/23/2008 Overview (07/02/2024): Assessment & Plan (06/04/2024 [...] and following up with routine medical care. Encounters Date Type Department Care Team Description 04/05/2025 Results Follow-Up Adult Medicine [address] [phone] uHi Victoria PA 03/25/2025 8:30 AM EDT Office Visit Adult Medicine [address] [address] Hui Victoria PA Encounter for annual wellness visit (AWV) in Medicare patient (Primary Dx); Need for vaccination against Streptococcus pneumoniae; Type 2 diabetes mellitus with other ophthalmic complication, without long-term current use of insulin ([facility] V24, [facility] V28); Overweight (BMI 25.0-29.9); Primary hypertension; DM (diabetes mellitus), type 2 with peripheral vascular complications ([facility] V24, [facility] V28); Diabetes mellitus type 2 with neurological manifestations ([facility] V24, [facility] V28); Bilateral carotid artery stenosis; Coronary artery disease involving k[place] coronary artery of kivalina heart without angina pectoris; Hyperlipidemia LDL goal <55 from Last 3 Months Immunizations Immunization Administration Dates Next Due H1N1 Inj Preservative Free 08/01/2009 Influenza Quadravalent, MDCK , 0.5ml, preservative free (Flucelvax) 6mo and older 07/09/2019 Influenza Quadravalent, MDCK , 0.5ml, with preservative (Flucelvax) 6mo and older 03/22/2017 Influenza trivalent, 0.5mL ( Fluad) 65yo and older 03/25/2025,02/06/2024 Influenza trivalent, 0.5mL ( Fluzone High-dose) 65yo and older 02/15/2023,02/11/2022,03/06/2021,02/22,03/29/2016,02/18/2015,06/20/2014 ,04/10/2013,03/31/2012,05/05/2011,06/2009 Influenza trivalent, with pr eservative (Fluzone; Afluria) 6mo and older 01/30/2020 Pfizer (ages 12 & older) Biv alent, COVID-19 02/06/2024 Pfizer SARS-CoV-2 COVID-19, mRNA, LNP-S, preservative free 09/07/2021,03/10/2021 Pneumococcal conjugate 13 va lent (Prevnar 13, PCV13) 2mo and older 02/22/2018 Pneumococcal conjugate 20 va lent (Prevnar 20, PCV 20) 2mo and older 03/25/2025 Pneumococcal polysaccharide 23 valent (Pneumovax 23) 2yo [...] mellitus type 2 wit h neurological manifestations ([facility] V24, [facility] V28) 01/07/2015 Onychomycosis 01/07/2015 DM (diabetes mellitus), type 2 with peripheral vascular complications ([facility] V24, [facility] V28) 03/06/2021 CAD (coronary artery disease) 08/23/2023 CA BG x3 Carotid stenosis 03/04/2021: right 50-69%; left <50% HLD (hyperlipidemia) 08/23/2008 Nephrolithiasis 11/07/2019 Tubular adenoma 11/19/202411/21 CN 13 polyp s Family History Medical History Relation Name Comments Prostate cancer Father [place], age 92 Diabetes Maternal Grandfather Hypertension Mother [...] care for your loved ones. For example, children's zoo caretaker or elderly care for an older adult? [...] Sign Reading Time Taken Comments Blood Pressure 195/88 03/25/2025 8:[address] RAGE Pulse 59 03/25/2025 8:50 AM EDT Temperature 35.8 C (96.4 F) 03/25/2025 8:49 AM EDT Respiratory Rate 16 03/25/2025 8:49 AM EDT Oxygen Saturation 97% 11/19/2024 9:26 AM EDT Inhaled Oxygen Concentration - - Weight 83.5 kg (184 lb) 03/25/2025 8:49 AM EDT Height 175.3 cm (5' 9 ) 03/25/2025 8:49 AM EDT Body Mass Index 27.17 03/25/2025 8:49 AM EDT Plan of Treatment Upcoming Encounters Date Type Department Care Team (Late st Contact Info) Description 04/22/2025 10:15 AM EST Office Visit [facility] [address] [place] [address] Hui Victoria PA [address] [place] [address] 08/14/2025 9:30 AM EDT Office Visit Vascular Surgery - [place] [address] [place] [phone] Tati Zaragoza MD [address] [place] [phone] Health Maintenance Due Date Last Done Comments Diabetes: Annual Foot Exam 1962 Zoster Vaccines (3 of 3) 06/09/2020 04/14/2020, 07/28 COVID-19 Vaccine ( season) 2025 02/06/2024, 09/07/2021, 03/10/2021, Additional history exists Diabetes: Annual Retina Eye Exam 04/09/2025 04/09/2024, 10/05/2023 Diabetes: Annual Urine Albumin-Creatinine Ratio (uACR) 06/28/2025 06/28/2024, 08/10/2023 Diabetes: Blood Sugar Control Test (HGBA1C) 09/23/2025 03/25/2025, 10/25/2024, 06/28/2024, Additional history exists Colorectal Cancer Screening: Colonoscopy 11/07/2025 11/07/2024 Diabetes: Annual GFR (Glomerular Filtration Rate) 03/25/2026 03/25/2025, 06/28/2024, 10/17/2023, Additional history exists Falls Risk Assessment 03/25/2026 03/25/2025, 025 Hypertension/CHF/CAD Annual BMP Blood Test 03/25/2026 03/25/2025, 06/28/2024, 10/17/2023, Additional history exists Medicare Annual Wellness Visit 03/25/2026 03/25/2025, 03/05/2024 Social Influencers of Health Screening 03/25/2026 03/25/2025 RSV Immunization Adult Patients (1 - 1-dose 75+ series) 12/02/2027 02/06/2024 Cholesterol Screening (Lipid Panel) 06/28/2029 06/28/2024, 08/10/2023 DTaP,Tdap,and Td Vaccines (5 - Td or Tdap) 08/27/2032 08/27/2022, 08/01/2012, 12/05/2002, Additional history exists Hepatitis C Screening Completed 04/10/2013 RSV Immunization Patients Under 20 months Aged Out 02/06/2024 No longer eligible based on patient's age to complete this topic Depression Screening Completed 03/25/2025 Influenza Vaccine Completed 03/25/2025, , 02/15/2023, Additional history exists Pneumococcal Vaccine: 50+ Years Completed 03/25/2025, 02/27/2019, 02/22/2018, Additional history exists HIB Vaccines Aged Out No longer eligi [...] Procedure Name Priority Date/Time Associated Diagnosis Comments HEMOGLOBIN A1C Routine 03/25/2025 9:25 AM EDT DM (diabetes mellitus), type 2 with peripheral vascular complications (CMS/HCC V24, CMS/HCC V28) Diabetes mellitus type 2 with neurological manifestations (CMS/HCC V24, CMS/HCC V28) Type 2 diabetes mellitus with other ophthalmic complication, without long-term current use of insulin (CMS/HCC V24, CMS/HCC V28) BASIC METABOLIC PANEL Routine 03/25/2025 9:25 AM EDT Primary hypertension DM (diabetes mellitus), type 2 with peripheral vascular complications (CMS/HCC V24, CMS/HCC V28) Diabetes mellitus type 2 with neurological manifestations (CMS/HCC V24, CMS/HCC V28) Overweight (BMI 25.0-29.9) Type 2 diabetes mellitus with other ophthalmic complication, without long-term current use of insulin (CMS/HCC V24, CMS/HCC V28) Mixed hyperlipidemia Coronary artery disease involving k[place] coronary artery of kivalina heart without angina pectoris Bilateral carotid artery stenosis COLONOSCOPY Routine 11/07/2024 3:15 PM EDT Hx of colonic polyps MICROALBUMIN CREATININE URINE RATIO Routine 06/28/2024 10:04 AM EST Diabetes mellitus type 2 with neurological manifestations (CMS/HCC V24, CMS/HCC V28) DM (diabetes mellitus), type 2 with peripheral vascular complications (CMS/HCC V24, CMS/HCC V28) LIPID PANEL WITH REFLEX TO DIRECT LDL [...] Recently Relevant to Health Maintenance Results * (ABNORMAL) Hemoglobin A1c (03/25/2025 9:25 AM EDT) Hemoglobin A1C 7.6(H) <6.5 % LAB CHEMISTRY METHOD 03/25/2025 1:42 PM T [facility] Mean Bld Glu Estim. 171 mg/dL LAB CHEMISTRY METHOD 03/25/2025 1:42 PM [facility] Blood Venous blood specimen / Unknown Venipuncture / Unknown 03/25/2025 9:25 AM EDT 03/25/2025 9:25 AM EDT us Hui COLEMAN LAB BLOOD ORDERABLES Final Re sult [facility] [address] [place] [address], * (ABNORMAL) Basic metabolic panel (03/25/2025 9:25 AM EDT) Sodium 140 133 - 145 mmol/L LAB CHEMISTRY METHOD 03/25/2025 3:48 PM [facility] Potassium 4.6 3.5 - 5.5 mmol/L LAB CHEMISTRY METHOD 03/25/2025 3:48 PM [facility] Chloride 107 96 - 110 mmol/L LAB CHEMISTRY METHOD 03/25/2025 3:48 PM [facility] CO2 28 21 - 32 mmol/L LAB CHEMISTRY METHOD 03/25/2025 3:48 PM [facility] Anion Gap 5 3 - 11 LAB CHEMISTRY METHOD 03/25/2025 3:48 PM [facility] Glucose 135(H) 70 - 100 mg/dL LAB CHEMISTRY METHOD 03/25/2025 3:48 PM [facility] BUN 23 5 - 25 mg/dL LAB CHEMISTRY METHOD 03/25/2025 3:48 PM [facility] Creatinine 1.33(H) 0.70 - 1.30 mg/dL LAB CHEMISTRY METHOD 03/25/2025 3:48 PM [facility] eGFR 57(L) >=60 mL/min/1. 73m2 LAB CHEMISTRY METHOD 03/25/2025 3:48 PM EDT [facility] Comment:Calculation based on the Chronic Kidney Disease Epidemiology Collaboration (CKD-EPI) equation refit without adjustment for race. BUN/Creatinine Ratio 17.3 LAB CHEMISTRY METHOD 03/25/2025 3:48 PM EDT [facility] Calcium 9.7 8.5 - 10.5 mg/dL LAB CHEMISTRY METHOD 03/25/2025 3:48 PM EDT [facility] Blood Venous blood specimen / Unknown Venipuncture / Unknown 03/25/2025 9:25 AM EDT 03/25/2025 9:25 AM EDT us Hui COLEMAN LAB BLOOD ORDERABLES Final Re sult [facility] [address] [place] [address], * COLONOSCOPY Anesthesia - MAC; [place] [...] for surveillance. Narrative 11/07/2024 3:16 PM EDT [facility] Patient Name: Alli Lea Procedure Date: [...] verified by the physician, the nurse, the jet aircraft servicer and the flight test data acquisition technician in the pre-procedure area in the [...] reduce spontaneously). Procedure Code(s): --- Professional --- 97773, Colonoscopy, flexible; with removal of tumor(s), polyp(s), or other lesion(s) by snare technique Diagnosis Code(s): --- Professional --- D12.3, Benign neoplasm of transverse colon (hepatic flexure or splenic flexure) D12.2, Benign neoplasm of ascending colon D12.0, Benign neoplasm of cecum CPT copyright 2020 [employer]. All rights reserved. The codes documented in this report are preliminary and upon parts processor review may be revised to meet current compliance requirements. Ino Tee MD 11/07/2024 3:16:47 PM This report has been signed electronically.Ino Tee MD Number of Addenda: 0 Note Initiated On: 11/07/2024 2:44 PM Scope Withdrawal Time: 0 hours 19 minutes 12 seconds Scope In: 2:50:31 PM Scope Out: 3:14:19 PM Endoscopy Department at [facility] - [address] [place] [phone] Procedure Note Ino Tee MD - 11/07/2024 [facility] Patient Name: Alli Lea Procedure Date: [...] the physician, the nurse, theanesthetist and the flight test data acquisition technician in the pre-procedure area in the [...] reduce spontaneously). Procedure Code(s): --- Professional --- 82166, Colonoscopy, flexible; with removal of tumor(s), polyp(s), or other lesion(s) by snare technique Diagnosis Code(s): --- Professional --- D12.3, Benign neoplasm of transverse colon (hepatic flexure or splenic flexure) D12.2, Benign neoplasm of ascending colon D12.0, Benign neoplasm of cecum CPT copyright 2020 [employer]. All rights reserved. The codes documented in this report are preliminary and upon parts processor reviewmay be revised to meet current compliance requirements. Ino Tee MD 11/07/2024 3:16:47 PM This report has been signed electronically.Ino Tee MD Number of Addenda: 0 Note Initiated On: 11/07/2024 2:44 PM Scope Withdrawal Time: 0 hours 19 minutes 12 seconds Scope In: 2:50:31 PM Scope Out: 3:14:19 PM Endoscopy Department at [facility] - [address] [place] [phone] IMPRESSION: - 12 2 to 10 mm [...] MD GI~PROCEDURE ORDERABLES Fin al Result * Lipid panel with reflex to direct LDL (06/28/2024 10:04 AM EST) Cholesterol 133 0 - 200 mg/dL LAB CHEMISTRY METHOD 06/28/2024 12:29 PM [facility] Triglycerides 98 0 - 150 mg/dL LAB CHEMISTRY METHOD 06/28/2024 12:29 PM [facility] HDL 58 >=40 mg/dL LAB CHEMISTRY METHOD 06/28/2024 12:29 PM [facility] LDL Calculated 55 0 - 100 mg/dL LAB CHEMISTRY METHOD 06/28/2024 12:29 PM [facility] VLDL Cholesterol Keenan 19.6 mg/dL LAB CHEMISTRY METHOD 06/28/2024 12:29 PM [facility] Non HDL Chol. (LDL+VLDL) 75 <145 mg/dL LAB CHEMISTRY METHOD 06/28/2024 12:29 PM [facility] Chol/HDL Ratio 2.3 0.0 - 4.4 LAB CHEMISTRY METHOD 06/28/2024 12:29 PM [facility] Blood Venous blood specimen / Unknown Venipuncture / Unknown 06/28/2024 10:04 AM EST 06/28/2024 10:04 AM EST Hui COLEMAN LAB BLOOD ORDERABLES Final Re sult Performing Organization Address [facility]/ZIP Co de Phone Number [facility] [address] [place] [address], [place] [phone] * Microalbumin creatinine urine ratio (06/28/2024 10:04 AM EST) Creatinine, Urine 193.0 mg/dL LAB CHEMISTRY METHOD 06/28/2024 1:25 PM [facility] Microalb, Ur 28.6 0.0 - 29.0 mg/L LAB CHEMISTRY METHOD 06/28/2024 1:25 PM [facility] Microalb/Creat Ratio 15 <30 mg/g creat LAB CHEMISTRY METHOD 06/28/2024 1:25 PM [facility] Urine Urine specimen from urethra / Unknown Non-blood Collection / Unknown 06/28/2024 10:04 AM EST 06/28/2024 10:04 AM EST us Hui COLEMAN LAB URINE ORDERABLES Final Re sult Performing Organization Address City/[facility]/ZIP Co de Phone Number [facility] [address] [place] [address], [place] [phone] * External Diabetic Retina Eye Exam Report (04/09/2024) Anatomical Region Laterality Modality Ultrasound us Provider Onbase MD BRIGGS US PROCEDURES Final Resul t * Hepatitis C Screening (04/10/2013) Hepatitis C Screening Abstracted Historical Provider HEALTH MAINTENANCE Final Result from Last 3 Months or Most Recently Relevant to Health Maintenance Insurance MEDICARE [facility] Care Teams Web Applications Developer Relationship Specialty Start Date End Date Kacie Holly MD [address] [place] [address] PCP - General Internal Medicine 02/29/20
--- OUTSIDE RECORDS SUMMARY | 2025-04-10 19:06 | XMS_ITS | Encounter Summary ---
Author Organization [facility] Address [address] [place] [address] Care Team Providers Care Shirt Bander Name Role Phone Kacie Holly MD Primary Care Provider Jason Avendano MD Unavailable [phone] Irais Martinez NP Unavailable [phone] Encounter Details Date Type Department Care Team Description 11/11/2023 SCAN Medical Records [address] [place] [address] Efrain Mariee MD Social History Tobacco Use Types Packs/Day Years [...] on file documented as of this encounter Procedures Procedure Name Priority Date/Time Associated Diagnosis Comments OUTSIDE VASCULAR STUDY Routine 11/11/2023 OUTSIDE VASCULAR STUDY Routine 11/11/2023 documented in this encounter Results * OUTSIDE VASCULAR STUDY (11/11/2023) Provider Default CARDIOLOGY * OUTSIDE VASCULAR STUDY (11/11/2023) Provider Default CARDIOLOGY documented in this encounter Visit Diagnoses Not on filedocumented in this encounter Care Teams Shirt Bander Relationship Specialty Start Date End Date Kacie Holly MD [address] [place] [phone] PCP - General Internal Medicine 02/29/20 Jason Avendano MD [address] [place] [address] Dr Diaz [address] [place] [address] Specialist Cardiovascular Disease 08/22/23 Irais Martinez NP [address] [place] [address] [address] Cardiology 10/28/23 documented as of this encounter
--- OUTSIDE RECORDS SUMMARY | 2025-04-10 19:06 | XMS_ITS | Encounter Summary ---
Author Organization [facility] Address [address] [place] [address] Care Team Providers Care Data Systems Manager Name Role Phone Philip Calvert MD Primary Care Provider Unavail able Kacie Holly MD Primary Care Provider Kun Velarde MD Unavailable [phone] Jason Avendano MD Unavailable [phone] Irais Martinez NP Unavailable [phone] Encounter Details Date Type Department Care Team Description 12/16/2016 Furnace Charger Report Medical Records [address] [place] [phone] Yusuf Mcnally MD Social History Tobacco Use Types Packs/Day [...] on filedocumented in this encounter Care Teams Data Systems Manager Relationship Specialty Start Date End Date Philip Calvert MD PCP - General 06/18/08 02/28/20 Kacie Holly MD [address] [place] [address] PCP - General Internal Medicine 02/29/20 Kun Velarde MD [address] [place], [place] [phone] Specialist Cardiovascular Disease 08/19/23 4 Jason Avendano MD [address] [facility] [address] Diaz [address] [place] [address] Specialist Cardiovascular Disease 08/22/23 Irais Martinez NP [address] [place] [address] Center Mu Diaz [address] [place] [address] Cardiology 10/28/23 documented as of this encounter
--- OUTSIDE RECORDS SUMMARY | 2025-04-10 19:06 | XMS_ITS | Encounter Summary ---
Author Organization [facility] Address [address] [place] [address] Care Team Providers Care Weed Controller Name Role Phone Kacie Holly MD Primary Care Provider Kun Velarde MD Unavailable Jason Avendano MD Unavailable [phone] Irais Martinez NP Unavailable [phone] Reason for Visit * Reason Onset Date Comments Faxed Refill 03/03/2023 Encounter Details Date Type Department Care Team Description 03/03/2023 Refill Adult Medicine [address] [phone] Kacie Holly MD [address] [place] [address] [phone] Faxed Refill Social History Tobacco Use Types Packs/Day Years Used Date Smoking Tobacco: Never Smokeless Tobacco: Never Alcohol Use Standard Drinks/Week Comments No 0 (1 standard drink = 0.6 oz pur e alcohol) none sence 04/06 Sex Assigned at Date Recorded Not on file Job Start Date Occupation Industry Not on file Not on file Not on file COVID-19 Exposure Response Date Recorded In the last 10 days, have yo u been in contact with someone who was confirmed or suspected to have Coronavirus/COVID-19? No / Unsure 02/15/2023 1:40 PM EDT documented as of this encounter Miscellaneous Notes * Telephone Encounter - Alyssia Fraser M.A. - 03/03/2023 2:56 PM EDT Lab Results Component Value Date NA 142 02/15/2023 K 4.7 02/15/2023 CO2 28 02/15/2023 CL 110 02/15/2023 BUN 21 02/15/2023 CREAT 1.28 02/15/2023 GLU 110 02/15/2023 CA 9.5 02/15/2023 GFR 60 02/15/2023 IBRAHIMA 02/15/23 NOV 08/17/23 with PCP * Telephone Encounter - Jerri Mishra - 03/03/2023 1:47 PM EDT Patient would like script to be: E-PRESCRIBED/FAXED TO PHARMACY WHEN WAS THE PATIENT'S LAST APPOINTMENT IN ADULT MEDICINE? 02/15/23 WHEN WAS THE LAST TIME THE PATIENT SAW THEIR PCP? 08/27/22 Does patient have an upcoming appointment? Yes 08/17/23 (THE MEDICATION REQUESTED IS ON THE MED LIST ABOVE) All of the medications requested were on the CURRENT MEDS list Did you check the Pharmacy information above?: YES Patient wants: 90 -day supply Is this a mail order prescription request ? NO If the refill is from a FAXED refill request what is the RX # listed on the fax? N/A Patients current insurance carrier is: [place] / [place] / Product Type: [place]ARE [id number] documented in this encounter Plan of Treatment Not on file documented as of this encounter Visit Diagnoses Not on filedocumented in this encounter Care Teams Weed Controller Relationship Specialty Start Date End Date Kacie Holly MD [address] [place] [address] PCP - General Internal Medicine 02/29/20 Kun Velarde MD [address] [facility] [address] [place] [address] Specialist Cardiovascular Disease 08/19/23 4 Jason Avendano MD [address] [place] [address] Specialist Cardiovascular Disease 08/22/23 Irais Martinez NP [address] [place] [address] [phone] Cardiology 10/28/23 documented as of this encounter
--- OUTSIDE RECORDS SUMMARY | 2025-04-10 19:06 | XMS_ITS | Encounter Summary ---
Author Organization [facility] Address [address] [place] [address] Care Team Providers Care Container Washer Name Role Phone Kacie Holly MD Primary Care Provider [phone] Kun Velarde MD Unavailable [phone] Jason Avendano MD Unavailable Irais Martinez NP Unavailable Reason for Visit * Reason Comments E-prescribe Rx Request Encounter Details Date Type Department Care Team Description 01/23/2023 Refill Endocrinology - [address] [address] Barbara Elizabeth PA-C [address] [place] [address] [phone] E-prescribe Rx Request Social History Tobacco Use Types Packs/Day Years Used Date Smoking Tobacco: Never Smokeless Tobacco: Never Alcohol Use Standard Drinks/Week Comments No 0 (1 standard drink = 0.6 oz pur e alcohol) none sence 04/06 Sex Assigned at Date Recorded Not on file Job Start Date Occupation Industry Not on file Not on file Not on file documented as of this encounter Miscellaneous Notes * Telephone Encounter - Kalie Delgado M.A. - 01/25/2023 8:37 AM EDT Lab Results Component Value Date CHOL 146 09/10/2022 LDL 72 09/10/2022 HDL 59 09/10/2022 TRIG 78 09/10/2022 SGOT 12 07/03/2020 SGPT 16 07/03/2020 Pending appt with Hui mcguire PAC 02/15/23 Last appt with Chidi Mcguire PAC 08/2022 documented in this encounter Plan of Treatment Not on file documented as of this encounter Visit Diagnoses Not on filedocumented in this encounter Care Teams Container Washer Relationship Specialty Start Date End Date Kacie Holly MD [address] [place] [address] PCP - General Internal Medicine 02/29/20 Kun Velarde MD [address] [facility] [address] [place] [address] Specialist Cardiovascular Disease 08/19/23 4 Jason Avendano MD [address] [place] [address] Specialist Cardiovascular Disease 08/22/23 Irais Martinez NP [address] [place] [address] Cardiology 10/28/23 documented as of this encounter
--- OUTSIDE RECORDS SUMMARY | 2025-04-10 19:06 | XMS_ITS | Encounter Summary ---
Author Organization [facility] Address [address] [place] [address] Care Team Providers Care Non Destructive Evaluation Manager Name Role Phone Kacie Holly MD Primary Care Provider [phone] Jason Avendano MD Unavailable [phone] Irais Martinez NP Unavailable [phone] Reason for Visit * Reason Onset Date Comments Note, Other 12/15/2023 [facility]23 Encounter Details Date Type Department Care Team Description 12/15/2023 Telephone Adult Medicine [address] [phone] Kaice Holly MD [address] [place] [address] [phone] Note, Other ([facility] Cardiac Surgery/Note 12/07/23) Social History Tobacco Use Types Packs/Day Years [...] encounter Miscellaneous Notes * Telephone Encounter - Roma Lantigua - 12/15/2023 10:54 AM EDT Office note form [facility] Cardiac Surgery for visit on 12/07/23 reicved and placed in provider bin for review. documented in this encounter Plan of Treatment Not on file documented as of this encounter Visit Diagnoses Not on filedocumented in this encounter Care Teams Non Destructive Evaluation Manager Relationship Specialty Start Date End Date Kacie Holly MD [address] [place] [address] PCP - General Internal Medicine 02/29/20 Jason Avendano MD [address] [place] [address] Specialist Cardiovascular Disease 08/22/23 Irais Martinez NP [address] [place] [address] Cardiology 10/28/23 documented as of this encounter
--- OUTSIDE RECORDS SUMMARY | 2025-04-10 19:06 | XMS_ITS | Encounter Summary ---
Author Organization [facility] Address [address] [place] [address] Care Team Providers Care Operator Vacuum Name Role Phone Kacie Holly MD Primary Care Provider Kun Velarde MD Unavailable Jason Avendano MD Unavailable Irais Martinez NP Unavailable Reason for Visit * Reason Onset Date Comments refill request 05/28/2021 Encounter Details Date Type Department Care Team Description 05/28/2021 Refill Adult Medicine [address] [phone] Kacie Holly MD [address] [place] [address] [phone] refill request Social History Tobacco Use Types Packs/Day Years [...] encounter Miscellaneous Notes * Telephone Encounter - Safia Vega M.A. - 06/02/2021 1:36 PM EST Lab Results Component Value Date HGBA1C 6.2 03/05/2021 MALBUR 18.3 07/03/2020 MALBCR 10.0 07/03/2020 CHOL 161 07/03/2020 LDL 85 07/03/2020 HDL 53 07/03/2020 TRIG 117 07/03/2020 GLU 107 03/05/2021 CREAT 0.98 03/05/2021 * Telephone Encounter - Elizabet Murphy - 05/28/2021 4:16 PM EST Patient would like script to be: E-PRESCRIBED/FAXED TO PHARMACY WHEN WAS THE PATIENT'S LAST APPOINTMENT IN ADULT MEDICINE? 03/30/21 WHEN WAS THE LAST TIME THE PATIENT SAW THEIR PCP? 03/06/21 Does patient have an upcoming appointment? NO, Patient wanted to cancel apt he had on 06/03/21 and did not want to reschedule. Has apt on 07/28/21 with Barbara Elizabeth (THE MEDICATION REQUESTED IS ON THE MED [...] / Plan: [place] / Product Type: MEDICARE [id number] documented in this encounter Plan of Treatment Not on file documented as of this encounter Visit Diagnoses Not on filedocumented in this encounter Care Teams Operator Vacuum Relationship Specialty Start Date End Date Kacie Holly MD [address] [place] [address] PCP - General Internal Medicine 02/29/20 Kun Velarde MD [address] [place] [address] Specialist Cardiovascular Disease 08/19/23 4 Jason Avendano MD [address] [place] [address] [phone] Specialist Cardiovascular Disease 08/22/23 Irais Martinez NP [address] [place] [address] [address] Cardiology 10/28/23 documented as of this encounter
--- OUTSIDE RECORDS SUMMARY | 2025-04-10 19:06 | XMS_ITS | Encounter Summary ---
Author Organization [facility] Address [address] [place] [address] Care Team Providers Care Electrostatic Powder Coating Technician Name Role Phone Kacie Holly MD Primary Care Provider [phone] Jason Avendano MD Unavailable [phone] Irais Martinez NP Unavailable [phone] Encounter Details Date Type Department Care Team Description 11/25/2023 SCAN Medical Records [address] [place] [address] Abstract, Provider Social History Tobacco Use Types Packs/Day Years [...] Name Priority Date/Time Associated Diagnosis Comments OUTSIDE LAB Routine 11/25/2023 documented in this encounter Results * OUTSIDE LAB (11/25/2023) Provider Default LAB documented in this encounter Visit Diagnoses Not on filedocumented in this encounter Care Teams Electrostatic Powder Coating Technician Relationship Specialty Start Date End Date Kacie Holly MD [address] [place] [address] PCP - General Internal Medicine 02/29/20 Jason Avendano MD [address] [place] [address] Dr [address] [place], [place] [phone] Specialist Cardiovascular Disease 08/22/23 Irais Martinez NP [address] [place] [address] Cardiology 10/28/23 documented as of this encounter
--- OUTSIDE RECORDS SUMMARY | 2025-04-10 19:06 | XMS_ITS | Encounter Summary ---
Author Organization [facility] Address [address] [place] [address] Care Team Providers Care Pick Up Worker Name Role Phone Kacie Holly MD Primary Care Provider [phone] Kun Velarde MD Unavailable [phone] Jason Avendano MD Unavailable [phone] Irais Martinez NP Unavailable [phone] Encounter Details Date Type Department Care Team Description 03/16/2022 Orders Only Vascular Surgery - [place] [address] [facility] [address] [place] [address] Tati Zaragoza MD [address] [facility] [address] [place] [address] Stenosis of right carotid artery Social History Tobacco Use Types Packs/Day Years [...] suspected to have Coronavirus/COVID-19? No / Unsure 03/16/2022 8:12 AM EDT documented as of this encounter Plan of Treatment Not on file documented as of this encounter Procedures Procedure Name Priority Date/Time Associated Diagnosis Comments [place] DUPLEX SCAN EXTRACRANIAL ART COMPL BI STUDY Routine 03/16/2022 Stenosis of right carotid artery documented in this encounter Results * EXTRACRANIAL ARTERIES STUDY, COMPL (03/16/2022) Tati Zaragoza MD VASCULAR ULTRASO UND documented in this encounter Visit Diagnoses Diagnosis Stenosis of right carotid artery Occlusion and stenosis of carotid artery without mention of cerebral infarction documented in this encounter Care Teams Pick Up Worker Relationship Specialty Start Date End Date Kacie Holly MD [address] [place] [address] PCP - General Internal Medicine 02/29/20 Kun Velarde MD [address] [place] [address] Specialist Cardiovascular Disease 08/19/23 4 Jason Avendano MD [address] [place] [address] [phone] Specialist Cardiovascular Disease 08/22/23 Irais Martinez NP [address] [place] [address] 1881107 Cardiology 10/28/23 documented as of this encounter
--- OUTSIDE RECORDS SUMMARY | 2025-04-10 19:07 | XMS_ITS | Encounter Summary ---
Author Organization [facility] Address [address] [place] [address] Care Team Providers Care Storage Battery Inspector Name Role Phone Kacie Holly MD Primary Care Provider [phone] Jason Avendano MD Unavailable [phone] Irais Martinez NP Unavailable [phone] Encounter Details Date Type Department Care Team Description 08/23/2023 SCAN Medical Records 4 [place] [address] [facility] Social History Tobacco Use Types Packs/Day Years [...] on filedocumented in this encounter Care Teams Storage Battery Inspector Relationship Specialty Start Date End Date Kacie Holly MD [address] [place] [address] PCP - General Internal Medicine 02/29/20 Jason Avendano MD [address] [place] [address] Specialist Cardiovascular Disease 08/22/23 Irais Martinez NP [address] [place] [address] Cardiology 10/28/23 documented as of this encounter
--- OUTSIDE RECORDS SUMMARY | 2025-04-10 19:07 | XMS_ITS | Encounter Summary ---
Author Organization [facility] Address [address] [place] [address] Care Team Providers Care Ground Surveillance Systems Operator Name Role Phone Kacie Holly MD Primary Care Provider Kun Velarde MD Unavailable Jason Avendano MD Unavailable [phone] Irais Martinez NP Unavailable [phone] Reason for Visit * Reason Comments E-prescribe Rx Request Encounter Details Date Type Department Care Team Description 05/29/2023 Refill Adult Medicine [address] [phone] Hui Victoria PA-C [address] [place] [address] [phone] E-prescribe Rx Request Social History Tobacco Use [...] encounter Miscellaneous Notes * Telephone Encounter - Kane Rivera M.A. - 06/01/2023 11:52 AM EST Lat ov 02/15/2023 next ov 08/17/2023 with PCP Lab Results Component Value Date NA 142 02/15/2023 K 4.7 02/15/2023 CO2 28 02/15/2023 CL 110 02/15/2023 BUN 21 02/15/2023 CREAT 1.28 02/15/2023 GLU 131 04/18/2023 CA 9.5 02/15/2023 GFR 60 02/15/2023 documented in this encounter Plan of Treatment Not on file documented as of this encounter Visit Diagnoses Not on filedocumented in this encounter Care Teams Ground Surveillance Systems Operator Relationship Specialty Start Date End Date Kacie Holly MD [address] [place] [address] PCP - General Internal Medicine 02/29/20 Kun Velarde MD [address] [facility] [address] [place] [address] Specialist Cardiovascular Disease 08/19/23 4 Jason Avendano MD [address] [place] [address] Specialist Cardiovascular Disease 08/22/23 Irais Martinez NP [address] [place] [address] Cardiology 10/28/23 documented as of this encounter
--- OUTSIDE RECORDS SUMMARY | 2025-04-10 19:07 | XMS_ITS | Encounter Summary ---
Author Organization [facility] Address [address] [place] [address] Care Team Providers Care Third Cook Name Role Phone Kacie Holly MD Primary Care Provider [phone] Jason Avendano MD Unavailable [phone] Irais Martinez NP Unavailable [phone] Reason for Visit * Reason Onset Date Comments Hospital Procedure 08/24/2023 CATH Encounter Details Date Type Department Care Team Description 08/24/2023 Telephone Cardio PVC POC [address] [place] [address] Jason Avendano MD [address] [place] [address] [place] [address] Hospital Procedure (CATH) Social History Tobacco Use Types Packs/Day Years [...] encounter Miscellaneous Notes * Telephone Encounter - Keyanna Gage - 09/15/2023 8:54 AM EDT I have faxed demos, order, H&P, labs and cardiac testing to the [facility]inder at [facility] [phone] for patients upcoming procedure. * Telephone Encounter - Sangeeta Eidarty - 09/05/2023 10:31 AM EDT Pt`s called to state that they did not receive the instructions. I did change their address toa PO box. They did receive the lab orders.Please resend the instructions . Patricio * Telephone Encounter - Keyanna Gage - 08/31/2023 9:40 AM EDT I received confirmation from [facility] Cardiac Cath ? PCI scheduled 09/16/23 arrival at 6:30 am procedure at 8:30 am. I reviewed with patient, and gave pre cath instructions as well as mailing them. * Telephone Encounter - Keyanna Gage - 08/25/2023 9:48 AM EDT Spoke to patient to schedule cardiac cath, faxed worksheet to access. Will contact patient once confirmed and go over instructions. Patient aware of plan and will await my call. I mailed lab order to patient, per patient request * Telephone Encounter - Shaye Freeman - 08/24/2023 11:25 AM EDT Medicare No auth required Ok to book * Telephone Encounter - Keyanna Gage - 08/24/2023 10:00 AM EDT Please obtain PA for L. Heart cath ? PCI [id number] and [id number] [address] [facility] [address]. Givens. DX I25.118 documented in this encounter Plan of Treatment Not on file documented as of this encounter Results * (ABNORMAL) CHG PROTHROMBIN TIME (10/17/2023 9:07 AM EDT) Prothrombin Time 10.2(L) 10.6 - 13.9 SEC 10/17/2023 1:05 PM EDT [facility] INR 0.82 10/17/2023 1:05 PM EDT [facility] 10/17/2023 9:07 AM EDT 10/17/2023 9:08 AM EDT Narrative [facility] - 10/17/2023 1:05 PM EDT Release to patient->Immediate [facility] * (ABNORMAL) CHG BLOOD COUNT COMPLETE AUTO&AUTO DIFRNTL WBC (10/17/2023 9:07 AM EDT) Pathologist [facility] WHITE BLOOD COUNT 5.8 4.8 - 10.8 x10-3/uL 10/17/2023 1:24 PM EDT [facility] RED BLOOD COUNT 4.2(L) 4.5 - 5.5 x10-6/uL 10/17/2023 1:24 PM EDT [facility] Hemoglobin 12.6(L) 13.5 - 17.5 g/dL 10/17/2023 1:24 PM EDT [facility] Hematocrit 39.9(L) 42 - 54 % 10/17/2023 1:24 PM EDT [facility] MEAN CORPUSCULAR VOLUME 94.5 79 - 98 fL 10/17/2023 1:24 PM EDT [facility] MEAN CORPUSCULAR HEMOGLOBIN 29.9 27 - 32 pg 10/17/2023 1:24 PM EDT [facility] MEAN CORPUSCULAR HGB CONC 31.6(L) 32 - 37 g/dL 10/17/2023 1:24 PM EDT [facility] RED CELL DISTRIBUTION WIDTH 12.2 11 - 15 % 10/17/2023 1:24 PM EDT [facility] PLT COUNT 220 130 - 400 x10-3/uL 10/17/2023 1:24 PM EDT [facility] MEAN PLATELET VOLUME 10.7 7 - 11 fL 10/17/2023 1:24 PM EDT [facility] NRBC % AUTO 0.0 <1 % 10/17/2023 1:24 PM EDT [facility] NEUTROPHILS % 59.2 % 10/17/2023 1:24 PM EDT [facility] LYMPH % 30.4 % 10/17/2023 1:24 PM EDT [facility] MONO % 8.2 % 10/17/2023 1:24 PM EDT [facility] EOS % 1.5 % 10/17/2023 1:24 PM EDT [facility] BASO % 0.5 % 10/17/2023 1:24 PM EDT [facility] IMMATURE GRANULOCYTES % 0.2 % 10/17/2023 1:24 PM EDT [facility] NRBC # AUTO 0.00 <0.1 x10-3/uL 10/17/2023 1:24 PM EDT [facility] NEUT # 3.45 1.5 - 7.0 x10-3/uL 10/17/2023 1:24 PM EDT [facility] LYMPH # 1.77 1 - 5.0 x10-3/uL 10/17/2023 1:24 PM EDT [facility] MONO # 0.48 0.2 - 1.0 x10-3/uL 10/17/2023 1:24 PM EDT [facility] EOS # 0.09 0 - 0.5 x10-3/uL 10/17/2023 1:24 PM EDT [facility] BASO # 0.03 0 - 0.2 x10-3/uL 10/17/2023 1:24 PM EDT [facility] IMMATURE GRANULOCYTES # 0.01 0 - 0.03 x10-3/uL 10/17/2023 1:24 PM EDT [facility] 10/17/2023 9:07 AM EDT 10/17/2023 9:08 AM EDT Narrative [facility] - 10/17/2023 1:24 PM EDT Release to patient->Immediate Jason Avendano MD LAB [facility] * (ABNORMAL) CHG BASIC METABOLIC PANEL CALCIUM TOTAL (10/17/2023 9:07 AM EDT) GLUCOSE 128(H) 70 - 100 mg/dL 10/17/2023 5:41 PM EDT [facility] Comment:Reference range appl icable to fasting specimens only Blood Urea Nitrogen 18 5 - 25 mg/dL 10/17/2023 5:41 PM EDT [facility] CREAT 1.05 0.7 - 1.3 mg/dL 10/17/2023 5:41 PM EDT [facility] GLOMERULAR FILTRATION RATE 76 >60 10/17/2023 5:41 PM EDT [facility] Comment: This eGFR result was calculated using the CKD-EPI 2020 Creatinine Equation NA 146(H) 135 - 145 mEq/L 10/17/2023 5:41 PM EDT [facility] K 3.9 3.5 - 5.5 mmol/L 10/17/2023 5:41 PM EDT [facility] CL 113(H) 96 - 110 mmol/L 10/17/2023 5:41 PM EDT [facility] CARBON DIOXIDE (CO2) 26 21 - 32 mmol/L 10/17/2023 5:41 PM EDT [facility] ANION GAP 7 3 - 11 10/17/2023 5:41 PM EDT [facility] CALCIUM 9.2 8.5 - 10.5 mg/dL 10/17/2023 5:41 PM EDT [facility] 10/17/2023 9:07 AM EDT 10/17/2023 9:08 AM EDT Narrative [facility] - 10/17/2023 5:41 PM EDT Release to patient->Immediate Jason Avendano MD LAB [facility] documented in this encounter Visit Diagnoses Diagnosis 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 complication, 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
--- OUTSIDE RECORDS SUMMARY | 2025-04-10 19:07 | XMS_ITS | Encounter Summary ---
Author Organization [facility] Address [address] [place] [address] Care Team Providers Care Prior Authorization Technician Name Role Phone Kacie Holly MD Primary Care Provider [phone] Kun Velarde MD Unavailable [phone] Jason Avendano MD Unavailable [phone] Irais Martinez NP Unavailable [phone] Encounter Details Date Type Department Care Team Description 07/27/2023 SCAN Medical Records [address] [place] [address] [facility] Social History Tobacco Use Types Packs/Day Years [...] on filedocumented in this encounter Care Teams Prior Authorization Technician Relationship Specialty Start Date End Date Kacie Holly MD [address] [place] [address] PCP - General Internal Medicine 02/29/20 Kun Velarde MD [address] [place], [place] [phone] Specialist Cardiovascular Disease 08/19/23 4 Jason Avendano MD [address] [place] [address] Dr [address] [place] [address] Specialist Cardiovascular Disease 08/22/23 Irais Martinez NP [address] [place] [address] [address] Cardiology 10/28/23 documented as of this encounter
--- OUTSIDE RECORDS SUMMARY | 2025-04-10 19:07 | XMS_ITS | Encounter Summary ---
Author Organization [facility] Address [address] [place] [address] Care Team Providers Care Wet End Tester Name Role Phone Kacie Holly MD Primary Care Provider [phone] Kun Velarde MD Unavailable [phone] Jason Avendano MD Unavailable [phone] Irais Martinez NP Unavailable [phone] Encounter Details Date Type Department Care Team Description 06/17/2023 SCAN Cardio PVC [facility] [address] [facility] [address] [place] [address] Abstract, Provider Social History Tobacco Use Types [...] on filedocumented in this encounter Care Teams Wet End Tester Relationship Specialty Start Date End Date Kacie Holly MD [address] [place] [address] PCP - General Internal Medicine 02/29/20 Kun Velarde MD [address] [place] [address] Specialist Cardiovascular Disease 08/19/23 4 Jason Avendano MD [address] [place] [address] Dr [address] [place] [address] Specialist Cardiovascular Disease 08/22/23 Irais Martinez NP [address] [place] [address] [address] Cardiology 10/28/23 documented as of this encounter
--- OUTSIDE RECORDS SUMMARY | 2025-04-10 19:07 | XMS_ITS | Encounter Summary ---
Author Organization [facility] Address [address] [place] [address] Care Team Providers Care Ranch Hand Livestock Name Role Phone Kacie Holly MD Primary Care Provider [phone] Kun Velarde MD Unavailable [phone] Jason Avendano MD Unavailable [phone] Irais Martinez NP Unavailable [phone] Encounter Details Date Type Department Care Team Description 05/05/2023 Orders Only Medical Records [address] [place] [address] [facility] Social History Tobacco Use Types Packs/Day Years [...] Name Priority Date/Time Associated Diagnosis Comments OUTSIDE EYE EXAM Routine 05/05/2023 documented in this encounter Results * OUTSIDE EYE EXAM (05/05/2023) [facility] PROCEDURES documented in this encounter Visit Diagnoses Not on filedocumented in this encounter Care Teams Ranch Hand Livestock Relationship Specialty Start Date End Date Kacie Holly MD [address] [place] [address] PCP - General Internal Medicine 02/29/20 Kun Velarde MD [address] [place] [address] Specialist Cardiovascular Disease 08/19/23 4 Jason Avendano MD [address] [place] [address] Specialist Cardiovascular Disease 08/22/23 Irais Martinez NP [address] [place] [address] Cardiology 10/28/23 documented as of this encounter
--- OUTSIDE RECORDS SUMMARY | 2025-04-10 19:07 | XMS_ITS | Encounter Summary ---
Author Organization [facility] Address [address] [place] [address] Care Team Providers Care Boiler Coverer Helper Name Role Phone Kacie Holly MD Primary Care Provider Kun Velarde MD Unavailable Jason Avendano MD Unavailable [phone] Irais Martinez NP Unavailable Reason for Visit * Reason Onset Date Comments refill request 04/22/2023 Encounter Details Date Type Department Care Team Description 04/22/2023 Refill Adult Medicine [address] [phone] Kacie Holly MD [address] [place] [address] [phone] refill request Social History Tobacco Use Types [...] Telephone Encounter - Kalie Delgado M.A. - 04/25/2023 4:25 PM EST Lab Results Component Value Date NA 142 02/15/2023 K 4.7 02/15/2023 CO2 28 02/15/2023 CL 110 02/15/2023 BUN 21 02/15/2023 CREAT 1.28 02/15/2023 GLU 131 04/18/2023 CA 9.5 02/15/2023 GFR 60 02/15/2023 Lab Results Component Value Date CHOL 146 09/10/2022 LDL 72 09/10/2022 HDL 59 09/10/2022 TRIG 78 09/10/2022 SGOT 12 07/03/2020 SGPT 16 07/03/2020 pending appt 08/17/23 Last appt with Chidi Victoria, PAC 02/15/23 * Telephone Encounter - Micahela Gonzalez L.P.N. - 04/25/2023 7:06 AM EST Sent to wrong pool Routed to POD * Telephone Encounter - Chapito Flores - 04/22/2023 11:37 AM EST Patient would like script to be: [...] / Plan: [place] / Product Type: MEDICARE [id number] documented in this encounter Plan of Treatment Not on file documented as of this encounter Visit Diagnoses Not on filedocumented in this encounter Care Teams Boiler Coverer Helper Relationship Specialty Start Date End Date Kacie Holly MD [address] [place] [address] PCP - General Internal Medicine 02/29/20 Kun Velarde MD [address] [facility] [address] [place] [address] Specialist Cardiovascular Disease 08/19/23 4 Jason Avendano MD [address] [place] [address] Specialist Cardiovascular Disease 08/22/23 Irais Martinez NP [address] [place] [address] Cardiology 10/28/23 documented as of this encounter
--- OUTSIDE RECORDS SUMMARY | 2025-04-10 19:07 | XMS_ITS | Encounter Summary ---
Author Organization [facility] Address [address] [place] [address] Care Team Providers Care Block Piler Name Role Phone Philip Calvert MD Primary Care Provider Unavail able Kacie Holly MD Primary Care Provider Kun Velarde MD Unavailable Jason Avendano MD Unavailable [phone] Irais Martinez NP Unavailable [phone] Encounter Details Date Type Department Care Team Description 11/06/2010 Eye Director Emergency Report Medical Records [address] [place] [address] Kari Gan [address] [place] [address] [phone] Social History Tobacco Use Types Packs/Day Years Used Date Smoking Tobacco: Never Alcohol Use Standard Drinks/Week Comments [...] on filedocumented in this encounter Care Teams Block Piler Relationship Specialty Start Date End Date Philip Calvert MD PCP - General 06/18/08 02/28/20 Kacie Holly MD [address] [place] [address] PCP - General Internal Medicine 02/29/20 Kun Velarde MD [address] [place] [address] Specialist Cardiovascular Disease 08/19/23 4 Jason Avendano MD [address] [place] [address] [address] Specialist Cardiovascular Disease 08/22/23 Irais Martinez NP [address] [place] [address] Drive [address] [place] [address] Cardiology 10/28/23 documented as of this encounter
--- OUTSIDE RECORDS SUMMARY | 2025-04-10 19:07 | XMS_ITS | Encounter Summary ---
Author Organization [facility] Address [address] [place] [address] Care Team Providers Care Insurance Verification Representative Name Role Phone Kacie Holly MD Primary Care Provider [phone] Kun Velarde MD Unavailable [phone] Jason Avendano MD Unavailable [phone] Irais Martinez NP Unavailable [phone] Reason for Visit * Reason Onset Date Comments Abnormal Ekg-cardiology Overread 06/27/2023 [facility] EKG Overread Encounter Details Date Type Department Care Team Description 06/27/2023 Telephone Cardio [facility] Diag Testing [address] [place] [address] [place] [id number] Eileen Oneil MD [address] [place] [address] [phone] Abnormal Ekg-cardiology Overread ([facility] EKG Overread ) Social History Tobacco Use Types Packs/Day Years [...] Miscellaneous Notes * Telephone Encounter - Kalie Lauryn - 06/27/2023 8:[address] Velarde Overread an EKG that was sent over with the date of 06/17/23. He removed all the findings.He added: Poor Quality Tracings. The EKG is being sent back to the HIM Dept to be scanned as the final read. Thank You! documented in this encounter Plan of Treatment Not on file documented as of this encounter Visit Diagnoses Not on filedocumented in this encounter Care Teams Insurance Verification Representative Relationship Specialty Start Date End Date Kacie Holly MD [address] [place] [phone] PCP - General Internal Medicine 02/29/20 Kun Veladre MD [address] [facility] [address] [place] [address] Specialist Cardiovascular Disease 08/19/23 4 Jason Avendano MD [address] [place] [id number] Specialist Cardiovascular Disease 08/22/23 Irais Martinez NP [address] [place] [address] [address] Cardiology 10/28/23 documented as of this encounter
== END 2025-04-10 16:33 | disposition home or self-care (01) ==
LOC: HO.MRI 16:32
PROVIDERS: PCP Internal Medicine; Visit Provider Psychiatry & Neurology Neurology
DX: R06.83 Snoring (principal); G47.10 Hypersomnia, unspecified; G25.2 Other specified forms of tremor
CPT/HCPCS: 70551

== ENCOUNTER → 2025-04-22 10:46 | Outpatient (REF) | payer MEDICARE, SELFPAY | LOC: HO.SL 10:46 | PROVIDERS: PCP Internal Medicine; Visit Provider Psychiatry & Neurology Neurology | DX: G47.33 Obstructive sleep apnea (adult) (pediatric) (principal); R06.83 Snoring; G47.10 Hypersomnia, unspecified | CPT/HCPCS: 95806 ==

== ENCOUNTER → 2025-04-22 10:59 | Outpatient (BNV) | payer MEDICARE, SELFPAY | PROVIDERS: PCP Internal Medicine; Visit Provider Psychiatry & Neurology Neurology | DX: G47.33 Obstructive sleep apnea (adult) (pediatric) (principal) | CPT/HCPCS: 95806 ==